=== PATIENT | male | born 1955 | race African-American/Black ===

== ENCOUNTER 2022-05-10 12:26 | Inpatient (IN) | payer OTHER ==
[2022-05-10 15:50] LABS: BASO % 1.2 % (0-2.0); EOS % 5.7 % (0-4.5); HEMATOCRIT 37.1 % (35.4-49); HEMOGLOBIN 11.8 GM/dL (11.7-16.9); LYMPH % 19.6 % (8-40); MCH 27.7 pg (25.7-33.7); MCHC 31.9 g/dl (32.0-35.9); MEAN PLT VOLUME 7.7 fl (7.5-11.1); MONO % 10.4 % (3.8-10.2); NEUT % 63.1 % (42.8-82.8); PLATELET COUNT 188 10^3/uL (134-434); RBC 4.27 M/mm3 (4.00-5.60); RDW 17.3 % (11.9-15.9); WHITE BLOOD COUNT 3.2 K/mm3 (4.0-10.0)
[2022-05-10 15:57] LABS: INR 1.64 (0.83-1.09)
[2022-05-10 16:00] LABS: ACTIVATED PTT 37.2 SECONDS (25.2-36.5)
[2022-05-10 16:18] LABS: CALCIUM 9.1 mg/dL (8.5-10.1)
[2022-05-10 16:20] LABS: BLOOD UREA NITROGEN 38.6 mg/dL (7-18)
[2022-05-10 16:21] LABS: CREATININE 1.8 mg/dL (0.55-1.3)
[2022-05-10 16:22] LABS: BILIRUBIN,TOTAL 0.5 mg/dL (0.2-1); TOT PROT 7.6 g/dl (6.4-8.2)
[2022-05-10 16:27] LABS: N-TERMINAL BNP 546.4 pg/ml (5-125)
[2022-05-10] MEDS ORDERED: FUROSEMIDE 40 MG/4 ML INJECTABLE VIAL IVPUSH ONE (18:15)
[2022-05-10] MEDS ORDERED: FUROSEMIDE 40 MG/4 ML INJECTABLE VIAL ONE (19:41)
[2022-05-10] MEDS: APIXABAN 5 MG TABLET PO SCH (22:26)
[2022-05-11] MEDS: MULTIVITAMINS (DAILY MVI) TABLET (FP) PO SCH (10:28)
[2022-05-11] MEDS: APIXABAN 5 MG TABLET PO SCH ×2 (10:28→21:50)
[2022-05-11] MEDS: FAMOTIDINE 20 MG TABLET PO SCH ×2 (10:28→21:51)
[2022-05-11] MEDS: DULoxetine HCL 20 MG CAPSULE.DR PO SCH (10:28)
[2022-05-11] MEDS: ASCORBIC ACID 250 MG TABLET (FP) PO SCH (10:28)
[2022-05-11] MEDS: ASPIRIN 81 MG CHEWABLE TABLETS PO SCH (10:28)
[2022-05-11] MEDS: PARoxetine HCL 20 MG TABLET PO SCH (10:28)
[2022-05-11 11:12] LABS: EOS % 4.8 % (0-4.5); HEMATOCRIT 33.1 % (35.4-49); HEMOGLOBIN 10.9 GM/dL (11.7-16.9); LYMPH % 18.1 % (8-40); MCH 28.3 pg (25.7-33.7); MCHC 32.9 g/dl (32.0-35.9); MEAN PLT VOLUME 7.7 fl (7.5-11.1); MONO % 11.7 % (3.8-10.2); NEUT % 64.4 % (42.8-82.8); PLATELET COUNT 173 10^3/uL (134-434); RBC 3.84 M/mm3 (4.00-5.60); RDW 17.2 % (11.9-15.9); WHITE BLOOD COUNT 3.4 K/mm3 (4.0-10.0)
[2022-05-11 11:58] LABS: CALCIUM 9.5 mg/dL (8.5-10.1)
[2022-05-11 11:59] LABS: BLOOD UREA NITROGEN 39.9 mg/dL (7-18)
[2022-05-11 12:02] LABS: CREATININE 1.9 mg/dL (0.55-1.3)
[2022-05-11] MEDS: FUROSEMIDE 40 MG/4 ML INJECTABLE VIAL IVPUSH SCH (13:36)
[2022-05-11] MEDS: SENNOSIDES 8.6MG TABLET (FP) PO SCH (21:50)
[2022-05-12] MEDS: FUROSEMIDE 40 MG/4 ML INJECTABLE VIAL IVPUSH SCH ×2 (06:02→15:24)
[2022-05-12] MEDS: FAMOTIDINE 20 MG TABLET PO SCH ×2 (10:01→21:06)
[2022-05-12] MEDS: DULoxetine HCL 20 MG CAPSULE.DR PO SCH (10:01)
[2022-05-12] MEDS: ASCORBIC ACID 250 MG TABLET (FP) PO SCH (10:01)
[2022-05-12] MEDS: PARoxetine HCL 20 MG TABLET PO SCH (10:01)
[2022-05-12] MEDS: ASPIRIN 81 MG CHEWABLE TABLETS PO SCH (10:02)
[2022-05-12] MEDS: MULTIVITAMINS (DAILY MVI) TABLET (FP) PO SCH (10:02)
[2022-05-12] MEDS: APIXABAN 5 MG TABLET PO SCH ×2 (10:02→21:06)
[2022-05-12] MEDS: SENNOSIDES 8.6MG TABLET (FP) PO SCH (21:06)
[2022-05-13] MEDS: FUROSEMIDE 40 MG/4 ML INJECTABLE VIAL IVPUSH SCH ×2 (05:39→14:11)
[2022-05-13] MEDS: ASPIRIN 81 MG CHEWABLE TABLETS PO SCH (10:03)
[2022-05-13] MEDS: APIXABAN 5 MG TABLET PO SCH ×2 (10:03→22:13)
[2022-05-13] MEDS: MULTIVITAMINS (DAILY MVI) TABLET (FP) PO SCH (10:03)
[2022-05-13] MEDS: FAMOTIDINE 20 MG TABLET PO SCH ×2 (10:03→22:13)
[2022-05-13] MEDS: PARoxetine HCL 20 MG TABLET PO SCH (10:03)
[2022-05-13] MEDS: ASCORBIC ACID 250 MG TABLET (FP) PO SCH (10:03)
[2022-05-13] MEDS: DULoxetine HCL 20 MG CAPSULE.DR PO SCH (10:05)
[2022-05-13 13:29] VITALS: BMI 33.5
[2022-05-13 19:52] LABS: EPI CELLS 3 /uL (0-25.1); HYALINE CASTS 1 /uL (0-3.1); PH,URINE 5.5 (5.0-8.0); URINE APPEARANCE CLEAR; URINE BACTERIA 4122 /uL (0-1359); URINE BILIRUBIN NEGATIVE (NEGATIVE); URINE COLOR YELLOW; URINE GLUCOSE (UA) NEGATIVE (NEGATIVE); URINE KETONE NEGATIVE (NEGATIVE); URINE LEUK ESTERASE NEGATIVE (NEGATIVE); URINE NITRITE POSITIVE (NEGATIVE); URINE PROTEIN NEGATIVE (NEGATIVE); URINE RBC 15 /uL (0-23.9); URINE UROBILINOGEN 0.2 mg/dL (0.2-1.0); URINE WBC 7 /uL (0-25.8)
[2022-05-13] MEDS: SENNOSIDES 8.6MG TABLET (FP) PO SCH (22:13)
[2022-05-14] MEDS: FUROSEMIDE 40 MG/4 ML INJECTABLE VIAL IVPUSH SCH ×2 (05:20→13:28)
[2022-05-14] MEDS: APIXABAN 5 MG TABLET PO SCH ×2 (09:48→22:13)
[2022-05-14] MEDS: FAMOTIDINE 20 MG TABLET PO SCH ×2 (09:50→22:13)
[2022-05-14] MEDS: ASCORBIC ACID 250 MG TABLET (FP) PO SCH (09:50)
[2022-05-14] MEDS: DULoxetine HCL 20 MG CAPSULE.DR PO SCH (09:50)
[2022-05-14] MEDS: ASPIRIN 81 MG CHEWABLE TABLETS PO SCH (09:50)
[2022-05-14] MEDS: PARoxetine HCL 20 MG TABLET PO SCH (09:50)
[2022-05-14] MEDS: MULTIVITAMINS (DAILY MVI) TABLET (FP) PO SCH (09:50)
[2022-05-14] MEDS: SENNOSIDES 8.6MG TABLET (FP) PO SCH (22:13)
[2022-05-15] MEDS: FUROSEMIDE 40 MG/4 ML INJECTABLE VIAL IVPUSH SCH ×3 (06:19→14:09)
[2022-05-15] MEDS: DULoxetine HCL 20 MG CAPSULE.DR PO SCH (09:38)
[2022-05-15] MEDS: MULTIVITAMINS (DAILY MVI) TABLET (FP) PO SCH (09:39)
[2022-05-15] MEDS: APIXABAN 5 MG TABLET PO SCH ×2 (09:39→22:03)
[2022-05-15] MEDS: FAMOTIDINE 20 MG TABLET PO SCH ×2 (09:39→22:03)
[2022-05-15] MEDS: ASCORBIC ACID 250 MG TABLET (FP) PO SCH (09:39)
[2022-05-15] MEDS: ASPIRIN 81 MG CHEWABLE TABLETS PO SCH (09:39)
[2022-05-15] MEDS: PARoxetine HCL 20 MG TABLET PO SCH (09:39)
[2022-05-15] MEDS: SENNOSIDES 8.6MG TABLET (FP) PO SCH (22:03)
[2022-05-16] MEDS ORDERED: INSULIN (LEVEMIR) 100 UNITS/ML UNITS SQ ONE (08:34)
[2022-05-16] MEDS: ASCORBIC ACID 250 MG TABLET (FP) PO SCH (09:31)
[2022-05-16] MEDS: APIXABAN 5 MG TABLET PO SCH ×2 (09:31→21:53)
[2022-05-16] MEDS: FUROSEMIDE 40 MG/4 ML INJECTABLE VIAL IVPUSH SCH ×2 (09:33→11:02)
[2022-05-16] MEDS: PARoxetine HCL 20 MG TABLET PO SCH ×2 (09:33→10:03)
[2022-05-16] MEDS: ASPIRIN 81 MG CHEWABLE TABLETS PO SCH (09:33)
[2022-05-16] MEDS: MULTIVITAMINS (DAILY MVI) TABLET (FP) PO SCH (09:33)
[2022-05-16] MEDS: FAMOTIDINE 20 MG TABLET PO SCH ×2 (09:33→21:53)
[2022-05-16] MEDS: DULoxetine HCL 20 MG CAPSULE.DR PO SCH (09:33)
[2022-05-16] MEDS: SENNOSIDES 8.6MG TABLET (FP) PO SCH (21:53)
[2022-05-17] MEDS: ASPIRIN 81 MG CHEWABLE TABLETS PO SCH (09:14)
[2022-05-17] MEDS: APIXABAN 5 MG TABLET PO SCH (09:14)
[2022-05-17] MEDS: DULoxetine HCL 20 MG CAPSULE.DR PO SCH (09:14)
[2022-05-17] MEDS: ASCORBIC ACID 250 MG TABLET (FP) PO SCH (09:15)
[2022-05-17] MEDS: MULTIVITAMINS (DAILY MVI) TABLET (FP) PO SCH (09:15)
[2022-05-17] MEDS: FUROSEMIDE 40 MG/4 ML INJECTABLE VIAL IVPUSH SCH (09:15)
[2022-05-17] MEDS: FAMOTIDINE 20 MG TABLET PO SCH (09:16)
[2022-05-17] MEDS: PARoxetine HCL 20 MG TABLET PO SCH (09:17)
[2022-05-17 10:48] VITALS: BP 104/58; PULSE 79; RESP 20; TEMP 98.6
== END 2022-05-17 11:47 | DRG 299 ==
LOC: JER 12:26 → JERBED 16:37 → J6S 22:01
PROVIDERS: ADMIT Internal Medicine; ATTEND Internal Medicine
DX: I82.412 Acute embolism and thrombosis of left femoral vein (principal); R53.2 Functional quadriplegia; I69.354 Hemiplegia and hemiparesis following cerebral infarction affecting left non-dominant side; N17.9 Acute kidney failure, unspecified; E11.9 Type 2 diabetes mellitus without complications; J45.909 Unspecified asthma, uncomplicated; I10 Essential (primary) hypertension; I69.391 Dysphagia following cerebral infarction; E66.9 Obesity, unspecified; Z68.33 Body mass index [BMI] 33.0-33.9, adult
CPT/HCPCS: 0241U-QW; 36415; 71045-TC-FY; 76775-TC; 76856-TC; 80048; 80053; 81003; 82570; 83880; 84156; 84484; 85025; 85610; 85730; 93005; 93010; 93306-TC; 93970-TC; 99285-25

== ENCOUNTER 2023-02-14 11:38 | Inpatient (IN) | payer OTHER ==
[2023-02-14] MEDS ORDERED: FUROSEMIDE 40 MG/4 ML INJECTABLE VIAL IVPB ONE (13:03)
[2023-02-14] MEDS ORDERED: FUROSEMIDE 40 MG/4 ML INJECTABLE VIAL ONE (13:43)
[2023-02-14 14:45] LABS: EOS % 5.2 % (0-4.5); HEMATOCRIT 31.7 % (35.4-49); HEMOGLOBIN 10.1 GM/dL (11.7-16.9); LYMPH % 12.6 % (8-40); MCH 27.3 pg (25.7-33.7); MCHC 31.9 g/dl (32.0-35.9); MEAN CELL VOLUME 85.5 fl (80-96); MEAN PLT VOLUME 7.4 fl (7.5-11.1); MONO % 11.8 % (3.8-10.2); NEUT % 69.4 % (42.8-82.8); PLATELET COUNT 203 10^3/uL (134-434); RBC 3.71 M/mm3 (4.00-5.60); RDW 17.4 % (11.9-15.9); WHITE BLOOD COUNT 3.5 K/mm3 (4.0-10.0)
[2023-02-14 15:03] LABS: POTASSIUM 3.8 mmol/L (3.5-5.1)
[2023-02-14 15:04] LABS: CALCIUM 9.1 mg/dL (8.5-10.1)
[2023-02-14 15:05] LABS: ALBUMIN 3.7 g/dl (3.4-5.0); BLOOD UREA NITROGEN 70.1 mg/dL (7-18)
[2023-02-14 15:08] LABS: CREATININE 2.2 mg/dL (0.55-1.3)
[2023-02-14 15:10] LABS: BILIRUBIN,TOTAL 0.4 mg/dL (0.2-1); TOT PROT 8.2 g/dl (6.4-8.2)
[2023-02-14 15:13] LABS: N-TERMINAL BNP 696.6 pg/ml (5-125)
[2023-02-14] MEDS ORDERED: ACETAMINOPHEN 325 MG TABLET (FP) PO PRN (17:22)
[2023-02-14] MEDS ORDERED: APIXABAN 5 MG TABLET ONE (21:19)
[2023-02-14] MEDS ORDERED: LABETALOL HCL 100 MG TABLET (FP) ONE (21:19)
[2023-02-14] MEDS ORDERED: FAMOTIDINE 20 MG TABLET ONE (21:19)
[2023-02-14] MEDS ORDERED: SENNOSIDES 8.6MG TABLET (FP) PO ONE (21:20)
[2023-02-14] MEDS: SENNOSIDES 8.6MG TABLET (FP) PO SCH (21:39)
[2023-02-14] MEDS: FAMOTIDINE 20 MG TABLET PO SCH (21:39)
[2023-02-14] MEDS: APIXABAN 5 MG TABLET PO SCH (21:39)
[2023-02-14] MEDS: LABETALOL HCL 100 MG TABLET (FP) PO SCH (21:39)
[2023-02-15 00:49] VITALS: BMI 34.5
[2023-02-15] MEDS: LABETALOL HCL 100 MG TABLET (FP) PO SCH (06:55)
[2023-02-15 08:02] LABS: URINE APPEARANCE CLEAR; URINE BILIRUBIN NEGATIVE (NEGATIVE); URINE COLOR YELLOW; URINE GLUCOSE (UA) NEGATIVE (NEGATIVE); URINE KETONE NEGATIVE (NEGATIVE); URINE LEUK ESTERASE NEGATIVE (NEGATIVE); URINE NITRITE NEGATIVE (NEGATIVE); URINE PROTEIN NEGATIVE (NEGATIVE); URINE UROBILINOGEN 0.2 mg/dL (0.2-1.0)
[2023-02-15 09:28] LABS: BASO % 0.9 % (0-2.0); EOS % 6.2 % (0-4.5); HEMATOCRIT 28.6 % (35.4-49); HEMOGLOBIN 9.5 GM/dL (11.7-16.9); LYMPH % 14.7 % (8-40); MCH 27.8 pg (25.7-33.7); MCHC 33.2 g/dl (32.0-35.9); MEAN CELL VOLUME 83.8 fl (80-96); MEAN PLT VOLUME 7.2 fl (7.5-11.1); MONO % 14.9 % (3.8-10.2); NEUT % 63.3 % (42.8-82.8); PLATELET COUNT 192 10^3/uL (134-434); RBC 3.42 M/mm3 (4.00-5.60); RDW 17.6 % (11.9-15.9); WHITE BLOOD COUNT 3.8 K/mm3 (4.0-10.0)
[2023-02-15] MEDS: APIXABAN 5 MG TABLET PO SCH ×2 (09:50→21:38)
[2023-02-15] MEDS: FAMOTIDINE 20 MG TABLET PO SCH ×2 (09:50→21:38)
[2023-02-15] MEDS: PARoxetine HCL 20 MG TABLET PO SCH (09:50)
[2023-02-15] MEDS: DULoxetine HCL 20 MG CAPSULE.DR PO SCH (09:50)
[2023-02-15 09:54] LABS: POTASSIUM 3.6 mmol/L (3.5-5.1)
[2023-02-15 09:59] LABS: CALCIUM 8.8 mg/dL (8.5-10.1)
[2023-02-15 10:00] LABS: ALBUMIN 3.4 g/dl (3.4-5.0); BLOOD UREA NITROGEN 73.2 mg/dL (7-18)
[2023-02-15] MEDS ORDERED: FUROSEMIDE 40 MG/4 ML INJECTABLE VIAL IVPUSH SCH (10:00)
[2023-02-15 10:03] LABS: CREATININE 2.3 mg/dL (0.55-1.3)
[2023-02-15 10:05] LABS: BILIRUBIN,TOTAL 0.5 mg/dL (0.2-1); TOT PROT 7.7 g/dl (6.4-8.2)
[2023-02-15] MEDS ORDERED: CEFEPIME HCL 2 GM VIAL (RESTRICTED TO ID) IVPB SCH (12:15)
[2023-02-15] MEDS ORDERED: VANCOMYCIN/WATER FOR INJ (PEG) 1,000 MG/200 ML BAG IVPB ONE (12:15)
[2023-02-15] MEDS: CEFEPIME 2 GM in DEXTROSE 5%-WATER 100 ML IVPB SCH ×2 (15:40→21:43)
[2023-02-15] MEDS ORDERED: FUROSEMIDE 40 MG/4 ML INJECTABLE VIAL IVPUSH ONE (19:38)
[2023-02-15] MEDS: SENNOSIDES 8.6MG TABLET (FP) PO SCH (21:37)
[2023-02-15] MEDS: CARVEDILOL 3.125 MG TABLET (FP) PO SCH ×2 (21:38→21:43)
[2023-02-16] MEDS: CEFEPIME 2 GM in DEXTROSE 5%-WATER 100 ML IVPB SCH (06:32)
[2023-02-16 09:09] LABS: POTASSIUM 3.3 mmol/L (3.5-5.1)
[2023-02-16 09:16] LABS: ALBUMIN 3.5 g/dl (3.4-5.0); BLOOD UREA NITROGEN 72.6 mg/dL (7-18); CALCIUM 8.8 mg/dL (8.5-10.1)
[2023-02-16 09:19] LABS: CREATININE 2.4 mg/dL (0.55-1.3)
[2023-02-16 09:21] LABS: BILIRUBIN,TOTAL 0.5 mg/dL (0.2-1); TOT PROT 7.7 g/dl (6.4-8.2)
[2023-02-16 09:54] LABS: EPI CELLS 7 /uL (0-25.1); HYALINE CASTS 0 /uL (0-3.1); PH,URINE >= 9.0 (5.0-8.0); URINE APPEARANCE CLEAR; URINE BACTERIA 1844 /uL (0-1359); URINE BILIRUBIN NEGATIVE (NEGATIVE); URINE COLOR YELLOW; URINE GLUCOSE (UA) NEGATIVE (NEGATIVE); URINE KETONE NEGATIVE (NEGATIVE); URINE LEUK ESTERASE 2+ (NEGATIVE); URINE NITRITE POSITIVE (NEGATIVE); URINE PROTEIN NEGATIVE (NEGATIVE); URINE UROBILINOGEN 0.2 mg/dL (0.2-1.0); URINE WBC 10 /uL (0-25.8)
[2023-02-16 09:56] LABS: URINE RBC 12 /uL (0-23.9)
[2023-02-16] MEDS: FAMOTIDINE 20 MG TABLET PO SCH ×2 (10:32→21:57)
[2023-02-16] MEDS: APIXABAN 5 MG TABLET PO SCH (10:32)
[2023-02-16] MEDS: CARVEDILOL 3.125 MG TABLET (FP) PO SCH ×2 (10:32→21:57)
[2023-02-16] MEDS: PARoxetine HCL 20 MG TABLET PO SCH (10:32)
[2023-02-16] MEDS: DULoxetine HCL 20 MG CAPSULE.DR PO SCH (10:34)
[2023-02-16] MEDS ORDERED: HEPARIN NA (PORCINE) 5,000 UNITS/ML 1ML VIAL ONE ×2 (11:08→14:15)
[2023-02-16 11:11] LABS: INR 1.74 (0.83-1.09); PROTHROMBIN TIME (PATIENT) 20.1 SEC (9.7-13.0)
[2023-02-16] MEDS ORDERED: MIDAZOLAM HCL 2 MG/2 ML SINGLE DOSE VIAL ONE ×2 (11:51→13:10)
[2023-02-16] MEDS ORDERED: PROPOFOL 20 ML ONE (13:10)
[2023-02-16] MEDS ORDERED: POTASSIUM CHLORIDE ORAL LIQUID 20 MEQ/15 ML PO ONE ×3 (13:48→21:45)
[2023-02-16] MEDS ORDERED: ceFAZolin SODIUM 1 GM VIAL IVPB ONE (13:58)
[2023-02-16] MEDS ORDERED: ROCURONIUM BROMIDE 50 MG/5 ML SYRINGE ONE (14:31)
[2023-02-16] MEDS ORDERED: LIDOCAINE HCL 1%, 10 MG/ML (20ML VIAL) INF ONE (15:14)
[2023-02-16] MEDS ORDERED: ONDANSETRON 4 MG/2 ML VIAL IVPUSH PRN ×2 (15:18→15:27)
[2023-02-16] MEDS ORDERED: PROMETHAZINE HCL 25 MG/1 ML VIAL IVPB PRN ×2 (15:18→15:27)
[2023-02-16] MEDS ORDERED: ACETAMINOPHEN 325 MG TABLET (FP) PO PRN (15:27)
[2023-02-16] MEDS ORDERED: LACTATED RINGERS SOLUTION 1,000 ML IV SCH ×2 (15:30)
[2023-02-16] MEDS ORDERED: HEPARIN NA (PORCINE) 5,000 UNITS/ML 1ML VIAL IVPUSH PRN ×2 (15:31)
[2023-02-16] MEDS: HEPARIN INFUSION - 25,000 UNITS/500 ML INFUS.BAG IVPB SCH (18:20)
[2023-02-16] MEDS: LACTATED RINGERS SOLUTION 1,000 ML IV SCH (18:30)
[2023-02-16] MEDS ORDERED: CEFEPIME HCL 2 GM VIAL (RESTRICTED TO ID) IVPB SCH (20:15)
[2023-02-16] MEDS: SENNOSIDES 8.6MG TABLET (FP) PO SCH (21:57)
[2023-02-16] MEDS: CEFEPIME 1 GM in DEXTROSE 5%-WATER 100 ML IVPB SCH (21:57)
[2023-02-16] MEDS ORDERED: APIXABAN 5 MG TABLET PO SCH (22:00)
[2023-02-17] MEDS: LACTATED RINGERS SOLUTION 1,000 ML IV SCH (06:07)
[2023-02-17] MEDS: CEFEPIME 1 GM in DEXTROSE 5%-WATER 100 ML IVPB SCH (11:10)
[2023-02-17] MEDS: FUROSEMIDE 40 MG/4 ML INJECTABLE VIAL IVPUSH SCH (11:10)
[2023-02-17] MEDS: FAMOTIDINE 20 MG TABLET PO SCH ×2 (11:11→21:47)
[2023-02-17] MEDS: PARoxetine HCL 20 MG TABLET PO SCH (11:11)
[2023-02-17] MEDS: DULoxetine HCL 20 MG CAPSULE.DR PO SCH (11:11)
[2023-02-17] MEDS: CARVEDILOL 3.125 MG TABLET (FP) PO SCH ×2 (11:11→21:48)
[2023-02-17] MEDS: SENNOSIDES 8.6MG TABLET (FP) PO SCH (21:48)
[2023-02-17] MEDS: HEPARIN INFUSION - 25,000 UNITS/500 ML INFUS.BAG IVPB SCH (23:24)
[2023-02-18 09:49] LABS: BASO % 0.8 % (0-2.0); EOS % 3.3 % (0-4.5); HEMATOCRIT 28.2 % (35.4-49); HEMOGLOBIN 9.2 GM/dL (11.7-16.9); LYMPH % 10.1 % (8-40); MCH 27.5 pg (25.7-33.7); MCHC 32.6 g/dl (32.0-35.9); MEAN CELL VOLUME 84.3 fl (80-96); MEAN PLT VOLUME 7.8 fl (7.5-11.1); MONO % 13.5 % (3.8-10.2); NEUT % 72.3 % (42.8-82.8); PLATELET COUNT 155 10^3/uL (134-434); RBC 3.35 M/mm3 (4.00-5.60); RDW 17.4 % (11.9-15.9); WHITE BLOOD COUNT 4.8 K/mm3 (4.0-10.0)
[2023-02-18] MEDS: FUROSEMIDE 40 MG/4 ML INJECTABLE VIAL IVPUSH SCH (09:57)
[2023-02-18] MEDS: CARVEDILOL 3.125 MG TABLET (FP) PO SCH ×3 (09:57→22:51)
[2023-02-18] MEDS: FAMOTIDINE 20 MG TABLET PO SCH ×2 (09:57→22:51)
[2023-02-18] MEDS: PARoxetine HCL 20 MG TABLET PO SCH (09:57)
[2023-02-18] MEDS: DULoxetine HCL 20 MG CAPSULE.DR PO SCH (09:59)
[2023-02-18 10:31] LABS: ALBUMIN 3.4 g/dl (3.4-5.0); BILIRUBIN,TOTAL 0.7 mg/dL (0.2-1); BLOOD UREA NITROGEN 78.2 mg/dL (7-18); CALCIUM 8.8 mg/dL (8.5-10.1); CREATININE 2.9 mg/dL (0.55-1.3); MAGNESIUM 3.7 mg/dL (1.8-2.4); TOT PROT 7.5 g/dl (6.4-8.2)
[2023-02-18] MEDS: HEPARIN INFUSION - 25,000 UNITS/500 ML INFUS.BAG IVPB SCH (12:00)
[2023-02-18] MEDS: SENNOSIDES 8.6MG TABLET (FP) PO SCH (22:51)
[2023-02-19] MEDS: HEPARIN INFUSION - 25,000 UNITS/500 ML INFUS.BAG IVPB SCH ×3 (01:00→22:29)
[2023-02-19 09:22] LABS: BASO % 0.9 % (0-2.0); EOS % 4.3 % (0-4.5); HEMATOCRIT 26.4 % (35.4-49); HEMOGLOBIN 8.8 GM/dL (11.7-16.9); LYMPH % 16.2 % (8-40); MCH 27.3 pg (25.7-33.7); MCHC 33.2 g/dl (32.0-35.9); MEAN PLT VOLUME 7.4 fl (7.5-11.1); MONO % 16.1 % (3.8-10.2); NEUT % 62.5 % (42.8-82.8); PLATELET COUNT 158 10^3/uL (134-434); RBC 3.22 M/mm3 (4.00-5.60); RDW 17.4 % (11.9-15.9); WHITE BLOOD COUNT 4.4 K/mm3 (4.0-10.0)
[2023-02-19 09:30] LABS: POTASSIUM 3.5 mmol/L (3.5-5.1)
[2023-02-19 09:52] LABS: ALBUMIN 3.3 g/dl (3.4-5.0); BLOOD UREA NITROGEN 75.8 mg/dL (7-18); CALCIUM 8.6 mg/dL (8.5-10.1)
[2023-02-19 09:56] LABS: CREATININE 2.7 mg/dL (0.55-1.3)
[2023-02-19 09:57] LABS: BILIRUBIN,TOTAL 0.6 mg/dL (0.2-1); TOT PROT 7.4 g/dl (6.4-8.2)
[2023-02-19] MEDS: FAMOTIDINE 20 MG TABLET PO SCH ×2 (10:01→22:27)
[2023-02-19] MEDS: PARoxetine HCL 20 MG TABLET PO SCH (10:01)
[2023-02-19] MEDS: DULoxetine HCL 20 MG CAPSULE.DR PO SCH (10:02)
[2023-02-19] MEDS: CARVEDILOL 3.125 MG TABLET (FP) PO SCH ×2 (10:04→22:27)
[2023-02-19] MEDS: SENNOSIDES 8.6MG TABLET (FP) PO SCH (22:27)
[2023-02-20] MEDS: FAMOTIDINE 20 MG TABLET PO SCH ×2 (09:31→22:00)
[2023-02-20] MEDS: DULoxetine HCL 20 MG CAPSULE.DR PO SCH (09:31)
[2023-02-20] MEDS: PARoxetine HCL 20 MG TABLET PO SCH (09:31)
[2023-02-20] MEDS: CARVEDILOL 3.125 MG TABLET (FP) PO SCH ×2 (09:32→22:00)
[2023-02-20 10:12] LABS: BASO % 1.3 % (0-2.0); EOS % 4.7 % (0-4.5); HEMATOCRIT 26.6 % (35.4-49); HEMOGLOBIN 8.9 GM/dL (11.7-16.9); LYMPH % 14.3 % (8-40); MCH 27.3 pg (25.7-33.7); MCHC 33.3 g/dl (32.0-35.9); MEAN CELL VOLUME 82.2 fl (80-96); MEAN PLT VOLUME 7.3 fl (7.5-11.1); MONO % 12.2 % (3.8-10.2); NEUT % 67.5 % (42.8-82.8); PLATELET COUNT 161 10^3/uL (134-434); RBC 3.24 M/mm3 (4.00-5.60); RDW 17.7 % (11.9-15.9); WHITE BLOOD COUNT 3.3 K/mm3 (4.0-10.0)
[2023-02-20 11:49] LABS: ALBUMIN 3.2 g/dl (3.4-5.0); BILIRUBIN,TOTAL 0.5 mg/dL (0.2-1); BLOOD UREA NITROGEN 72.6 mg/dL (7-18); CALCIUM 8.8 mg/dL (8.5-10.1); CREATININE 2.7 mg/dL (0.55-1.3); POTASSIUM 3.5 mmol/L (3.5-5.1); TOT PROT 7.5 g/dl (6.4-8.2)
[2023-02-20] MEDS: POLYETHYLENE GLYCOL (HEALTHYLAX) 3350 17 GM PACKET PO SCH (15:55)
[2023-02-20] MEDS: HEPARIN INFUSION - 25,000 UNITS/500 ML INFUS.BAG IVPB SCH (19:05)
[2023-02-20] MEDS: POTASSIUM CHLORIDE TABS 20 MEQ TABLET.ER (FP) PO SCH (22:00)
[2023-02-20] MEDS: SENNOSIDES 8.6MG TABLET (FP) PO SCH (22:00)
[2023-02-21] MEDS: CARVEDILOL 3.125 MG TABLET (FP) PO SCH ×2 (09:35→21:29)
[2023-02-21] MEDS: FAMOTIDINE 20 MG TABLET PO SCH ×2 (09:35→21:29)
[2023-02-21] MEDS: DULoxetine HCL 20 MG CAPSULE.DR PO SCH (09:35)
[2023-02-21] MEDS: PARoxetine HCL 20 MG TABLET PO SCH (09:35)
[2023-02-21] MEDS: POTASSIUM CHLORIDE TABS 20 MEQ TABLET.ER (FP) PO SCH ×2 (09:35→21:29)
[2023-02-21] MEDS: POLYETHYLENE GLYCOL (HEALTHYLAX) 3350 17 GM PACKET PO SCH (09:36)
[2023-02-21 09:59] LABS: HEMATOCRIT 27.6 % (35.4-49); HEMOGLOBIN 9.1 GM/dL (11.7-16.9); MCH 27.4 pg (25.7-33.7); MEAN CELL VOLUME 83.2 fl (80-96); MEAN PLT VOLUME 7.4 fl (7.5-11.1); PLATELET COUNT 164 10^3/uL (134-434); RBC 3.31 M/mm3 (4.00-5.60); RDW 17.7 % (11.9-15.9); WHITE BLOOD COUNT 3.7 K/mm3 (4.0-10.0)
[2023-02-21 10:10] LABS: MAGNESIUM 3.6 mg/dL (1.8-2.4)
[2023-02-21 14:44] VITALS: RESP 18
[2023-02-21] MEDS: HEPARIN INFUSION - 25,000 UNITS/500 ML INFUS.BAG IVPB SCH (16:31)
[2023-02-21 21:29] VITALS: BP 92/55; PULSE 78; TEMP 98.8
[2023-02-21] MEDS: SENNOSIDES 8.6MG TABLET (FP) PO SCH (21:29)
== END 2023-02-22 02:13 | disposition short-term general hospital (02) | DRG 271 ==
LOC: JER 11:38 → JERBED 16:50 → J5S 21:41 → OBSVTOIN 02-15 10:47 → J5S 02-17 01:49
PROVIDERS: ADMIT Internal Medicine; ATTEND Internal Medicine
PROC: 06CY3ZZ Extirpation of Matter from Lower Vein, Percutaneous Approach (ICD-10-PCS; 2023-02-16)
PROC: 3E03317 Introduction of Other Thrombolytic into Peripheral Vein, Percutaneous Approach (ICD-10-PCS; 2023-02-16)
PROC: 067Y3ZZ Dilation of Lower Vein, Percutaneous Approach (ICD-10-PCS; principal; 2023-02-16 13:00)
DX: I82.423 Acute embolism and thrombosis of iliac vein, bilateral (principal); L97.818 Non-pressure chronic ulcer of other part of right lower leg with other specified severity; L97.828 Non-pressure chronic ulcer of other part of left lower leg with other specified severity; N13.30 Unspecified hydronephrosis; N17.9 Acute kidney failure, unspecified; E11.51 Type 2 diabetes mellitus with diabetic peripheral angiopathy without gangrene; I69.391 Dysphagia following cerebral infarction; R13.10 Dysphagia, unspecified; E66.8 Other obesity; Z68.34 Body mass index [BMI] 34.0-34.9, adult; I83.018 Varicose veins of right lower extremity with ulcer other part of lower leg; I83.028 Varicose veins of left lower extremity with ulcer other part of lower leg; E87.6 Hypokalemia; D64.9 Anemia, unspecified; I12.9 Hypertensive chronic kidney disease with stage 1 through stage 4 chronic kidney disease, or unspecified chronic kidney disease; E11.22 Type 2 diabetes mellitus with diabetic chronic kidney disease; N18.9 Chronic kidney disease, unspecified
CPT/HCPCS: 36415; 71045-TC-FY; 74176-TC; 76000-TC-FY; 76775-TC; 80048; 80053; 80061; 81003; 82272; 82570; 82962; 83036; 83735; 83880; 84156; 84443; 84484; 85025; 85027; 85610; 85730; 86850; 86900; 86901; 87070; 87077; 87086; 87186; 87205; 87635; 93005; 93010; 93306-TC; 94760; 99285-25; C1725; G0378; J1644